=== PATIENT | female | born 1950 | race Caucasian/White ===

== ENCOUNTER 2018-05-01 10:32 | Outpatient (CLI) | payer MEDICARE ==
[2018-05-01] VITALS (17 sets, daily range): BP systolic 139–174; BP diastolic 87–101
== END 2018-05-01 23:59 | disposition home or self-care (01) ==
LOC: CARD DIAG 10:32
PROVIDERS: ATTEND Internal Medicine Cardiovascular Disease
DX: R55 Syncope and collapse (principal)
CPT/HCPCS: 93660